=== PATIENT | female | born 1930 | race Caucasian/White ===

== ENCOUNTER 2018-06-30 11:17 | Observation (INO) | payer MEDICARE ==
[~2018-06-30] VITALS: Ht 157.5 cm; Wt 63.5 kg
[2018-06-30] MEDS ORDERED: EFFER-K 25 MEQ25 MEQ PO (11:23)
[2018-06-30] MEDS ORDERED: OMEPRAZOLE20 M1 PO (11:23)
[2018-06-30] MEDS ORDERED: CALCIUM 250+D T1 TAB PO (11:23)
[2018-06-30] MEDS ORDERED: PULMICORT0.25 MG/1 (11:24)
[2018-06-30] MEDS ORDERED: PROBIOTIC1 EAC1 PO (11:24)
[2018-06-30] MEDS ORDERED: BENTYL10 MG PO (11:24)
[2018-06-30 12:12] LABS: BASOPHILS 0.1 % (0-2); EOSINOPHILS 0.5 % (0-7); HEMATOCRIT 44.6 % (36.0-48.0); HEMOGLOBIN 14.8 g/dL (12-16); IMMATURE GRANULOCYTES 0.3 % (0-5); MCH 28.7 pg (26.0-34.0); MCHC 33.2 g/dL (31.0-37.0); MCV 86.4 fL (80.0-100.0); MEAN PLATELET VOLUME 10.3 fL (7.4-10.4); MONOCYTES 8.1 % (2-11); PLATELET COUNT 169 10x3/uL (130-400); RBC 5.16 10x6/uL (4.00-5.40); RDW 12.8 % (11.5-14.5)
[2018-06-30 12:24] LABS: ALBUMIN 2.8 g/dL (3.4-5.0); ANION GAP 9.9 mmol/L (8-16); BILIRUBIN - TOTAL 0.45 mg/dL (0.2-1.3); CALCIUM 8.1 mg/dL (8.5-10.1); CARBON DIOXIDE 29.2 mmol/L (21.0-32.0); CREATININE - SERUM 0.9 mg/dL (0.6-1.3); POTASSIUM - SERUM 3.1 mmol/L (3.5-5.1); PROTEIN - SERUM 5.8 g/dL (6.4-8.2)
[2018-06-30 13:09] LABS: APPEARANCE CLEAR (CLEAR); BACTERIA MODERATE /hpf (NONE SEEN); BILIRUBIN NEGATIVE (NEGATIVE); CALCIUM OXALATE CRYSTALS 0-5 /hpf (NONE SEEN); COLOR YELLOW (YELLOW); EPITHELIAL CELLS 0-5 /hpf (0-5); GLUCOSE NEGATIVE (NEGATIVE); KETONE MODERATE mg/dL (NEGATIVE); MUCUS <1+ /lpf (NONE SEEN); NITRITE NEGATIVE (NEGATIVE); PROTEIN TRACE mg/dL (NEGATIVE); RED CELLS - URINE OCC /hpf (0-5); UROBILINOGEN NORMAL (NORMAL); WHITE CELLS - URINE 0-5 /hpf (0-5)
--- NOTE | 2018-06-30 17:10 | NUR ---
LEVAQUIN INFUSION COMPLETE AT THIS TIME.
--- NOTE | 2018-06-30 19:45 | NUR ---
PT SITTING UP IN BED, NO SIGNS OF DISTRESS. ALERT AND ORIENTED. IV LEFT FA INFUSING NS @ 125. PT STATES SHE HAS HAD N/V, SOME ABD TENDERNESS, AND LOOSE BM SINCE SATURDAY. GIVING ZOFRAN FOR NAUSEA. PT IS UP TO BATHROOM W/ ASSIST. DENIES NEEDS AT THIS TIME. CL IN REACH, WILL CONTINUE TO MONITOR
[2018-07-01 04:38] LABS: BASOPHILS 0.2 % (0-2); EOSINOPHILS 3.2 % (0-7); HEMATOCRIT 39.4 % (36.0-48.0); HEMOGLOBIN 12.7 g/dL (12-16); IMMATURE GRANULOCYTES 0.4 % (0-5); LYMPHOCYTES 20.5 % (15-50); MCH 28.3 pg (26.0-34.0); MCHC 32.2 g/dL (31.0-37.0); MCV 87.8 fL (80.0-100.0); MEAN PLATELET VOLUME 10.5 fL (7.4-10.4); MONOCYTES 9.1 % (2-11); NEUTROPHILS 66.6 % (40-80); PLATELET COUNT 156 10x3/uL (130-400); RBC 4.49 10x6/uL (4.00-5.40); RDW 12.7 % (11.5-14.5)
[2018-07-01 05:05] LABS: ALBUMIN 2.2 g/dL (3.4-5.0); ALKALINE PHOSPHATASE 71 U/L (46-116); ALT (SGPT) 13 U/L (10-68); CARBON DIOXIDE 27.1 mmol/L (21.0-32.0); CHLORIDE - SERUM 104 mmol/L (98-107); POTASSIUM - SERUM 3.2 mmol/L (3.5-5.1); PROTEIN - SERUM 4.7 g/dL (6.4-8.2); SODIUM 138 mmol/L (136-145)
[2018-07-01 05:08] LABS: CALC OSMOLALITY 272 mosm/kg (275-300); CALCIUM 6.9 mg/dL (8.5-10.1); CREATININE - SERUM 0.5 mg/dL (0.6-1.3); GLUCOSE 70 mg/dL (74-106); UREA NITROGEN 11 mg/dL (7-18); eGFR NON AFRICAN AMERICAN > 90 mL/min (90-120)
[2018-07-01 05:46] VITALS: BP 84/36
[2018-07-01 07:22] VITALS: BMI 25.6
--- NOTE | 2018-07-01 07:30 | NUR ---
REC'D IN ROOM SITTING ON SIDE OF BED AWAKE AND ALERT. RESP EVEN AND UNLABORED WITH NO DISTRESS NOTED. CAN EXPRESS NEEDS AND WANTS. NO C/O NOTED OR VOICED. IV INFUSING TO LEFT FA. ASSESMENT COMPLETED. C/L IN REACH AT BEDSIDE.
[2018-07-01 08:53] VITALS: Ht 157.5 cm; Wt 63.5 kg
[2018-07-01 09:46] VITALS: BP 110/60
[2018-07-01] MEDS ORDERED: LEVSIN/ANASP0.125 MG PO (13:49)
[2018-07-01 15:10] VITALS: BP 104/53
--- NOTE | 2018-07-01 16:10 | NUR ---
Helped patient to the restroom, she was steady on her feet and voided without difficulty. patient sitting up at side of bed eating ice cream denies any N/V at this time
--- NOTE | 2018-07-01 16:46 | NUR ---
I have reviewed this patient and I concur with the Shift Assessment completed by the Licensed Practical Nurse today this shift.
[2018-07-01 17:24] VITALS: BP 102/56
--- NOTE | 2018-07-01 19:45 | NUR ---
PT SITTING UP IN BED, NO SIGNS OF DISTRESS. ALERT AND ORIENTED. PT STATES NO ABD PAIN OR NAUSEA. IV RIGHT FA INFUSING NS @ 125. SCDS ON. UP WITH ASSIT TO BATHROOM. DENIES NEEDS AT THIS TIME. CL IN REACH, WILL CONTINUE TO MONITOR
[2018-07-01 21:37] VITALS: BP 106/54
[2018-07-02 01:33] VITALS: BP 104/49
[2018-07-02 04:18] LABS: BASOPHILS 0.2 % (0-2); EOSINOPHILS 3.9 % (0-7); HEMATOCRIT 40.4 % (36.0-48.0); HEMOGLOBIN 13.4 g/dL (12-16); IMMATURE GRANULOCYTES 0.3 % (0-5); LYMPHOCYTES 23.1 % (15-50); MCH 28.8 pg (26.0-34.0); MCHC 33.2 g/dL (31.0-37.0); MCV 86.9 fL (80.0-100.0); MEAN PLATELET VOLUME 10.5 fL (7.4-10.4); MONOCYTES 10.5 % (2-11); PLATELET COUNT 165 10x3/uL (130-400); RBC 4.65 10x6/uL (4.00-5.40); RDW 12.9 % (11.5-14.5); WBC 5.9 10x3/uL (4.8-10.8)
[2018-07-02 04:32] LABS: CALC OSMOLALITY 281 mosm/kg (275-300); CALCIUM 7.1 mg/dL (8.5-10.1); CHLORIDE - SERUM 108 mmol/L (98-107); CREATININE - SERUM 0.4 mg/dL (0.6-1.3); GLUCOSE 82 mg/dL (74-106); SODIUM 143 mmol/L (136-145); eGFR NON AFRICAN AMERICAN > 90 mL/min (90-120)
[2018-07-02 04:35] LABS: UREA NITROGEN 6 mg/dL (7-18)
[2018-07-02 04:48] VITALS: BP 121/51
--- NOTE | 2018-07-02 07:51 | NUR ---
REC'D IN BED WITH EYES CLOSED EASILY AROUSED WHEN NAME IS CALLED. RESP EVEN AND UNLABORE WITH NO DISTRESS NOTED OR VOICED. NO C/O NOTED OR VOICED. C/L IN REACH AT BEDSIDE.
[2018-07-02 08:45] VITALS: BP 131/74
[2018-07-02] MEDS ORDERED: LEVOFLOXACIN500 MG PO ×2 (09:30→09:40)
[2018-07-02] MEDS ORDERED: FLAGYL500 MG PO (09:32)
--- NOTE | 2018-07-02 16:40 | NUR ---
DC HOME AT THIS TIME VOICE UNDERSTANDING OF DC SUMMARY. IV ALSO DC. LEFT IN STABLE CONDITION. C/L IN REACH AT BEDSIDE.
--- NOTE | 2018-07-02 16:46 | NUR ---
I have reviewed this patient and I concur with the Shift Assessment completed by the Licensed Practical Nurse today this shift.
== END 2018-07-02 16:41 | disposition home or self-care (01) ==
LOC: D.ER 11:17 → D.EDHOLD 14:49 → OBSVTIME 14:49 → D.MS 14:49
PROVIDERS: Family Medicine; ADMIT Internal Medicine Nephrology; ATTEND Internal Medicine Nephrology
DX: K52.9 Noninfective gastroenteritis and colitis, unspecified (principal); E86.0 Dehydration; E87.6 Hypokalemia; E87.1 Hypo-osmolality and hyponatremia; R11.2 Nausea with vomiting, unspecified; N39.0 Urinary tract infection, site not specified; K57.90 Diverticulosis of intestine, part unspecified, without perforation or abscess without bleeding

== ENCOUNTER 2019-12-17 16:21 | Emergency (ER) | payer MEDICARE ==
[~2019-12-17] VITALS: Ht 157.5 cm; Wt 67.3 kg
[~2019-12-17 16:21] MED LIST: BENTYL10 MG PO; CALCIUM 250+D T1 TAB PO; EFFER-K 25 MEQ25 MEQ PO; FLAGYL500 MG PO; LEVOFLOXACIN500 MG PO; LEVSIN/ANASP0.125 MG PO; OMEPRAZOLE20 M1 PO; PROBIOTIC1 EAC1 PO; PULMICORT0.25 MG/1
[2019-12-17 16:26] VITALS: BP 164/68; Ht 157.5 cm; Wt 67.3 kg
== END 2019-12-17 17:45 | disposition home or self-care (01) ==
LOC: D.ER 16:21
DX: S92.401A Displaced unspecified fracture of right great toe, initial encounter for closed fracture (principal); W22.8XXA Striking against or struck by other objects, initial encounter; Y93.9 Activity, unspecified; Y92.9 Unspecified place or not applicable; M20.11 Hallux valgus (acquired), right foot; K21.9 Gastro-esophageal reflux disease without esophagitis